=== PATIENT | male | born 1960 | race Hispanic/Latino ===

== ENCOUNTER → 2018-07-13 | Outpatient (CLI) | payer OTHER | END | disposition home or self-care (01) | LOC: RAH 09:48 | PROVIDERS: ATTEND Internal Medicine | DX: N20.0 Calculus of kidney (principal); N28.1 Cyst of kidney, acquired; I10 Essential (primary) hypertension | CPT/HCPCS: 76770; 93975 ==

== ENCOUNTER → 2018-09-28 | Outpatient (CLI) | payer OTHER ==
[2018-09-28 14:19] LABS: EOSINOPHILS % (AUTO) 1.9 % (0.0-8.0); LYMPHOCYTES % (AUTO) 20.2 % (21.0-51.0); MEAN CORPUSCULAR HEMOGLOBIN 29.3 pg (27.0-33.0); MEAN CORPUSCULAR VOLUME 86.3 fL (79-99); MONOCYTES % (AUTO) 7.4 % (3.0-13.0); NEUTROPHILS % (AUTO) 69.5 % (40.0-77.0); PLATELET COUNT (AUTO) 245 K/uL (130-400); RED BLOOD CELL COUNT(AUTO) 3.71 MIL/uL (4.50-6.20); RED CELL DISTRIBUTION WIDTH 14.2 % (11.0-15.5); WHITE BLOOD COUNT (AUTO) 11.1 K/uL (4.8-10.8)
[2018-09-28 14:27] LABS: CREATININE 2.2 mg/dL (0.5-1.5); POTASSIUM 5.2 mmol/L (3.5-5.1)
== END | disposition home or self-care (01) ==
LOC: RAH 13:37
PROVIDERS: ATTEND Urology
DX: R31.29 Other microscopic hematuria (principal)
CPT/HCPCS: 36415; 80048; 85025

== ENCOUNTER → 2018-10-02 | Outpatient (CLI) | payer OTHER | END | disposition home or self-care (01) | LOC: RAH 10:32 | PROVIDERS: ATTEND Urology | DX: N28.1 Cyst of kidney, acquired (principal) | CPT/HCPCS: 76770 ==

== ENCOUNTER → 2018-10-09 | Outpatient (CLI) | payer OTHER | END | disposition home or self-care (01) | LOC: RAH 12:51 | PROVIDERS: ATTEND Urology | DX: N20.0 Calculus of kidney (principal); N28.1 Cyst of kidney, acquired; R91.8 Other nonspecific abnormal finding of lung field; J84.10 Pulmonary fibrosis, unspecified; I70.0 Atherosclerosis of aorta | CPT/HCPCS: 74176; 76770 ==

== ENCOUNTER → 2018-12-15 | Outpatient (CLI) | payer OTHER | END | disposition home or self-care (01) | LOC: RAH 12:51 | PROVIDERS: ATTEND Urology | DX: N20.0 Calculus of kidney (principal); M47.815 Spondylosis without myelopathy or radiculopathy, thoracolumbar region | CPT/HCPCS: 74018; 76100 ==

== ENCOUNTER → 2019-01-12 | Outpatient (CLI) | payer OTHER | END | disposition home or self-care (01) | LOC: RAH 13:27 | PROVIDERS: ATTEND Internal Medicine | DX: N20.0 Calculus of kidney (principal); K63.89 Other specified diseases of intestine; I70.0 Atherosclerosis of aorta; K82.8 Other specified diseases of gallbladder; J90 Pleural effusion, not elsewhere classified; R91.8 Other nonspecific abnormal finding of lung field; J98.11 Atelectasis; M47.815 Spondylosis without myelopathy or radiculopathy, thoracolumbar region | CPT/HCPCS: 74176 ==

== ENCOUNTER 2019-02-23 17:23 | Inpatient (IN) | payer OTHER ==
[~2019-02-23] VITALS: Ht 170.2 cm; Wt 95.5 kg
[2019-02-23 18:43] LABS: APPEARANCE,URINE Clear (CLEAR); BILIRUBIN,URINE Negative (NEGATIVE); COLOR,URINE Yellow (YELLOW); GLUCOSE, URINE (UA) Negative (NEGATIVE); KETONES,URINE Negative (NEGATIVE); LEUKOCYTE ESTERASE ,URINE Negative (NEGATIVE); NITRATE,URINE Negative (NEGATIVE); OCCULT BLOOD,URINE Small (NEGATIVE); PH,URINE 5.5 (5.0-8.0); PROTEIN,URINE >=1000 mg/dL (NEGATIVE)
[2019-02-23 19:31] LABS: BACTERIA,URINE Few /HPF (None Seen); MUCUS,URINE Few LPF (None Seen); SQUAMOUS EPITHELIAL CELL,UR 0-2 /HPF (0-2)
[2019-02-23] MEDS ORDERED: ZOSYN 3.375GM+NS 50ML 50 ML IV SCH (20:15)
[2019-02-23 20:50] VITALS: BP 168/75
[2019-02-23] MEDS: ZOSYN 3.375GM+NS 50ML 50 ML IV SCH (21:30)
--- NOTE | 2019-02-23 21:36 | NUR ---
ADMIT PT ADMITTED TO ROOM 416, AAOX3. DENIES ANY PAINS NOR DISCOMFORT AT THIS TIME. NO DISTRESS NOTED. ADMISSION CARE DONE. ADMISSION DATA BASE COMPLETED. STARTED ON IV ZOSYN MD ORDERED. ORIENTED TO ROOM AND UNIT. PT TOOK OWN HOME MEDS FOR THE NIGHT. IN FOR MORE CARE AND MANAGEMENT. Addendum: 02/23/19 at 2155 by RAMIRO PETERSON RN RN Amended: Links added.
[2019-02-23] MEDS ORDERED: NEBI10TA PO (22:26)
[2019-02-23] MEDS ORDERED: [UNRECOGNIZED DRUG - OTHER] PO ×2 (22:26)
[2019-02-23] MEDS ORDERED: TORS20TA4 PO (22:26)
[2019-02-23] MEDS ORDERED: AMLO10TA7 PO (22:26)
[2019-02-23] MEDS ORDERED: FERS325 PO (22:26)
[2019-02-23] MEDS ORDERED: TAMS-1 PO (22:26)
[2019-02-23] MEDS ORDERED: INSU300I SQ (22:26)
[2019-02-23] MEDS ORDERED: ATOR40TA71 PO (22:26)
[2019-02-23] MEDS ORDERED: SODI650T PO (22:26)
[2019-02-23] MEDS ORDERED: ASCO1TAB40 PO (22:26)
[2019-02-23] MEDS ORDERED: CINN500C PO (22:26)
[2019-02-23] MEDS ORDERED: FOLI1TAB85 PO (22:26)
[2019-02-23] MEDS ORDERED: MAGNESIUM 2GM PREMIX 50ML 50 ML IV PRN (23:00)
[2019-02-23] MEDS ORDERED: HYDRALAZINE HCL 20 MG/ML VIAL IV PRN (23:00)
[2019-02-23] MEDS ORDERED: POTASSIUM CHLORIDE 20MEQ/100ML 100 ML IV PRN (23:00)
[2019-02-23 23:20] VITALS: BP 163/75
[2019-02-23 23:24] LABS: BASOPHILS % (AUTO) 1.2 % (0.0-5.0); EOSINOPHILS % (AUTO) 6.5 % (0.0-8.0); HEMATOCRIT 22.3 % (42-54); LYMPHOCYTES % (AUTO) 26.3 % (21.0-51.0); MEAN CORPUSCULAR HEMOGLOBIN 27.4 pg (27.0-33.0); MEAN CORPUSCULAR HGB CONC 33.3 g/dL (32.0-36.0); MEAN CORPUSCULAR VOLUME 82.4 fL (79-99); PLATELET COUNT (AUTO) 148 K/uL (130-400); RED BLOOD CELL COUNT(AUTO) 2.71 MIL/uL (4.50-6.20); WHITE BLOOD COUNT (AUTO) 7.3 K/uL (4.8-10.8)
--- NOTE | 2019-02-23 23:31 | NUR ---
ORDERS NEW ORDERS FROM [facility] RECEIVED, ORDERED BY REMOTE ACCESS. PHYSICAL GEOGRAPHER IN TO DRAW BLOOD. BLADDER SCAN DONE POST VOIDING NAD NO RESIDUAL URINE NOTED. RESULTS PLACED IN CHART. KEPT COMFORTABLE IN BED. WILL MONITOR PT.
[2019-02-23 23:43] LABS: ALBUMIN 2.4 g/dL (3.5-5.0); BILIRUBIN,TOTAL 0.4 mg/dL (0.2-1.0); CREATININE 5.2 mg/dL (0.5-1.5); POTASSIUM 5.8 mmol/L (3.5-5.1); TOTAL PROTEIN, SERUM 6.6 g/dL (6.0-8.3)
[2019-02-23] MEDS ORDERED: HYDRALAZINE HCL 20 MG/ML VIAL ONE (23:52)
[2019-02-23 23:56] LABS: B-TYPE NATRIURETIC PEPTIDE 628 pg/mL (0-100)
[2019-02-23] MEDS ORDERED: 0.9126SP NS (23:59)
[2019-02-24 00:39] VITALS: BP 156/71
--- NOTE | 2019-02-24 02:00 | NUR ---
ROUNDS PT RESTING WELL, NO DISTRESS NOTED. KEPT RESTED AND COMFORTABLE. CALL LIGHT WITHIN REACH. WILL MONITOR PT. FAMILY ASLEEP AT BEDSIDE.
[2019-02-24] MEDS ORDERED: SODIUM CHLORIDE 45 ML SPRY NS PRN (03:15)
[2019-02-24 03:20] VITALS: BP 161/74
--- NOTE | 2019-02-24 05:34 | NUR ---
ROUNDS PT RESTING WELL, ALREADY AWAKE. NO CONCERNS VERBALIZED AT THIS TIME. NO DISTRESS NOTED. KEPT COMFORTABLE IN BED. FOR MORE CARE.
[2019-02-24 05:35] LABS: HEMATOCRIT 22.9 % (42-54); MEAN CORPUSCULAR HEMOGLOBIN 27.1 pg (27.0-33.0); MEAN CORPUSCULAR HGB CONC 32.8 g/dL (32.0-36.0); MEAN CORPUSCULAR VOLUME 82.7 fL (79-99); PLATELET COUNT (AUTO) 154 K/uL (130-400); RED BLOOD CELL COUNT(AUTO) 2.77 MIL/uL (4.50-6.20); RED CELL DISTRIBUTION WIDTH 15.3 % (11.0-15.5); WHITE BLOOD COUNT (AUTO) 7.8 K/uL (4.8-10.8)
[2019-02-24 05:58] LABS: ALBUMIN 2.4 g/dL (3.5-5.0); BILIRUBIN,TOTAL 0.4 mg/dL (0.2-1.0); CREATININE 5.2 mg/dL (0.5-1.5); MAGNESIUM 1.9 mg/dL (1.80-2.40); PHOSPHORUS 4.7 mg/dL (2.5-4.9); POTASSIUM 5.5 mmol/L (3.5-5.1); TOTAL PROTEIN, SERUM 6.7 g/dL (6.0-8.3); URIC ACID 6.7 mg/dL (2.6-7.2)
[2019-02-24 06:29] LABS: INR 1.05 (0.85-1.15); PARTIAL THROMBOPLASTIN TIME 27.8 SEC (26.3-35.5)
[2019-02-24] MEDS: INSULIN HUMULIN R 100 UNIT/ML 3ML SQ SCH ×4 (06:34→21:00)
[2019-02-24 08:00] VITALS: BP 177/80
[2019-02-24] MEDS ORDERED: [UNRECOGNIZED DRUG - OTHER] SQ SCH (08:00)
[2019-02-24] MEDS ORDERED: INSULIN GLARGINE HUM REC ANLOG 45 UNIT SQ SCH (08:00)
[2019-02-24] MEDS: TAMSULOSIN HCL 0.4 MG CAP.ER.24H PO SCH (08:34)
[2019-02-24] MEDS: FERROUS SULFATE 325 MG TABLET.DR PO SCH (08:35)
[2019-02-24] MEDS: SODIUM BICARBONATE 650 MG TAB PO SCH ×2 (08:35→21:05)
[2019-02-24] MEDS: AMLODIPINE BESYLATE 5 MG TAB PO SCH (08:35)
[2019-02-24] MEDS: FOLIC ACID/VITAMIN B COMP W-C 1 MG CAP/TAB PO SCH (08:35)
[2019-02-24] MEDS: ESTER C 1000 MG PO SCH (08:36)
[2019-02-24] MEDS: CINNAMON BARK 500 MG PO SCH (08:36)
[2019-02-24] MEDS: NEBIVOLOL HCL 10 MG PO SCH (08:36)
[2019-02-24] MEDS: [UNRECOGNIZED DRUG - OTHER] PO SCH ×2 (08:36→21:00)
[2019-02-24] MEDS: ZOSYN 3.375GM+NS 50ML 50 ML IV SCH ×2 (08:36→21:05)
[2019-02-24] MEDS ORDERED: TORSEMIDE 20 MG TAB PO SCH (09:00)
--- NOTE | 2019-02-24 10:29 | NUR ---
DR SHAGGY ANGEL REGARDING CONSULT Addendum: 02/24/19 at 1126 by MELCHOR PINEDA RN RN SPOKE TO [facility]
[2019-02-24 11:23] VITALS: BP 128/61
--- NOTE | 2019-02-24 13:54 | NUR ---
DCP CM met with pt discussed dc plans. Pt is independent prior to admission, lives at home alone. Pt has a shower chair and cane. Denies any equipments/services. Feels safe to go back home, still drives, arranges own needs, cousing able to assist as necessary. DC plan to home once stable. CM to cont to follow up. Addendum: 02/24/19 at 1356 by CATHERINE BALDWIN LVN CM Amended: Links added.
[2019-02-24 16:00] VITALS: BP 154/75
[2019-02-24 19:00] VITALS: BP 142/66
--- NOTE | 2019-02-24 20:21 | NUR ---
CONSULT DR COON IN TO SEE PT. NEW ORDERS RECEIVED, PLEASE REFER TO CPOE.
[2019-02-24] MEDS: ATORVASTATIN CALCIUM 40 MG TABLET PO SCH (21:05)
[2019-02-24] MEDS: FLUTICASONE PROPIONATE 50MCG/SPRAY 16 GM BOTTLE EN SCH (21:05)
--- NOTE | 2019-02-24 21:05 | NUR ---
MEDS SHIFT ASSESSMENT DONE, PLEASE REFER TO CHART. DUE MEDS ADMINISTERED, TOLERATED WELL. KEPT RESTED AND COMFORTABLE. CALL LIGHT WITHIN REACH. WILL MONITOR PT. Addendum: 02/24/19 at 2311 by RAMIRO PETERSON RN RN Amended: Links added.
[2019-02-25] VITALS: BP 144/79
--- NOTE | 2019-02-25 01:20 | NUR ---
SL PT AWAKENS WHEN COMMISSIONER OF OFFICIALS ENTERS ROOM. DENIES ANY NEEDS AT THIS TIME IV ABX FINISHED, SL PIV. ENCOURAGED PT TO GO BACK TO SLEEP. CALL LIGHT WITHIN REACH. FAMILY ASLEEP AT BEDSIDE. WILL MONITOR PT.
[2019-02-25 04:00] VITALS: BP 152/72
[2019-02-25 05:00] LABS: HEMOGLOBIN A1C 6.6 % (4.0-6.0)
[2019-02-25 05:01] LABS: BASOPHILS % (AUTO) 0.9 % (0.0-5.0); EOSINOPHILS % (AUTO) 6.1 % (0.0-8.0); HEMATOCRIT 22.1 % (42-54); LYMPHOCYTES % (AUTO) 22.4 % (21.0-51.0); MEAN CORPUSCULAR HEMOGLOBIN 28.1 pg (27.0-33.0); MEAN CORPUSCULAR HGB CONC 33.6 g/dL (32.0-36.0); MEAN CORPUSCULAR VOLUME 83.8 fL (79-99); MONOCYTES % (AUTO) 10.1 % (3.0-13.0); NEUTROPHILS % (AUTO) 60.5 % (40.0-77.0); NUCLEATED RED BLOOD CELLS 0.1 % (0.0-0.19); PLATELET COUNT (AUTO) 142 K/uL (130-400); RED BLOOD CELL COUNT(AUTO) 2.64 MIL/uL (4.50-6.20); RED CELL DISTRIBUTION WIDTH 15.1 % (11.0-15.5); WHITE BLOOD COUNT (AUTO) 7.9 K/uL (4.8-10.8)
[2019-02-25 05:16] LABS: CREATININE 5.3 mg/dL (0.5-1.5); MAGNESIUM 1.9 mg/dL (1.80-2.40); PHOSPHORUS 4.7 mg/dL (2.5-4.9); POTASSIUM 5.7 mmol/L (3.5-5.1); THYROID STIMULATING HORMONE 2.02 uIU/mL (0.36-3.74); URIC ACID 6.6 mg/dL (2.6-7.2)
--- NOTE | 2019-02-25 05:36 | NUR ---
ROUNDS PT RESTING WELL, NO CONCERNS VERBALIZED. NO DISTRESS NOTED. KEPT COMFORTABLE. FOR MORE CARE.
[2019-02-25] MEDS: INSULIN HUMULIN R 100 UNIT/ML 3ML SQ SCH ×4 (06:19→20:43)
[2019-02-25 07:30] VITALS: BP 139/72
[2019-02-25] MEDS: FOLIC ACID/VITAMIN B COMP W-C 1 MG CAP/TAB PO SCH (09:21)
[2019-02-25] MEDS: FERROUS SULFATE 325 MG TABLET.DR PO SCH (09:21)
[2019-02-25] MEDS: SODIUM BICARBONATE 650 MG TAB PO SCH ×2 (09:21→20:35)
[2019-02-25] MEDS: TAMSULOSIN HCL 0.4 MG CAP.ER.24H PO SCH (09:21)
[2019-02-25] MEDS: TORSEMIDE 20 MG TAB PO SCH (09:22)
[2019-02-25] MEDS: ZOSYN 3.375GM+NS 50ML 50 ML IV SCH ×2 (09:22→20:45)
[2019-02-25] MEDS: AMLODIPINE BESYLATE 5 MG TAB PO SCH (09:22)
[2019-02-25] MEDS: FLUTICASONE PROPIONATE 50MCG/SPRAY 16 GM BOTTLE EN SCH ×2 (09:26→20:35)
[2019-02-25] MEDS: [UNRECOGNIZED DRUG - OTHER] PO SCH ×2 (09:26→20:44)
[2019-02-25] MEDS: CINNAMON BARK 500 MG PO SCH (09:26)
[2019-02-25] MEDS: NEBIVOLOL HCL 10 MG PO SCH (09:26)
[2019-02-25] MEDS: ESTER C 1000 MG PO SCH (09:26)
[2019-02-25 12:00] VITALS: BP 160/79
[2019-02-25] MEDS: LACTULOSE 20 GM/30 ML UDCUP PO SCH ×2 (15:29→18:00)
[2019-02-25 16:00] VITALS: BP 138/72
[2019-02-25] MEDS ORDERED: LACTULOSE 20 GM/30 ML UDCUP PO PRN (18:15)
[2019-02-25 19:00] VITALS: BP 152/71
[2019-02-25] MEDS: ATORVASTATIN CALCIUM 40 MG TABLET PO SCH (20:35)
[2019-02-26] VITALS (15 sets, daily range): BP systolic 144–178; BP diastolic 61–99
[2019-02-26 05:19] LABS: BASOPHILS % (AUTO) 0.9 % (0.0-5.0); EOSINOPHILS % (AUTO) 5.7 % (0.0-8.0); HEMATOCRIT 22.4 % (42-54); LYMPHOCYTES % (AUTO) 24.7 % (21.0-51.0); MEAN CORPUSCULAR HEMOGLOBIN 27.3 pg (27.0-33.0); MEAN CORPUSCULAR HGB CONC 33.3 g/dL (32.0-36.0); MONOCYTES % (AUTO) 9.2 % (3.0-13.0); NEUTROPHILS % (AUTO) 59.5 % (40.0-77.0); PLATELET COUNT (AUTO) 149 K/uL (130-400); RED BLOOD CELL COUNT(AUTO) 2.73 MIL/uL (4.50-6.20); WHITE BLOOD COUNT (AUTO) 8.6 K/uL (4.8-10.8)
[2019-02-26 05:22] LABS: CREATININE 5.6 mg/dL (0.5-1.5); POTASSIUM 5.6 mmol/L (3.5-5.1)
[2019-02-26] MEDS: INSULIN HUMULIN R 100 UNIT/ML 3ML SQ SCH ×4 (06:36→21:38)
[2019-02-26] MEDS ORDERED: LIDOCAINE HCL 1% MDV 50ML VIAL ONE (09:49)
[2019-02-26] MEDS: FLUTICASONE PROPIONATE 50MCG/SPRAY 16 GM BOTTLE EN SCH ×2 (10:07→21:38)
--- NOTE | 2019-02-26 10:35 | NUR ---
PT RETURNED FROM PERMACATH PLACEMENT PT STABLE AND IN PLEASANT MOOD. SITE INTRACT AND NO BLEEDING NOTED. DOUBEL LUMEN PERMACATH NOTED TO R SIDE OF CHEST. POST OP VS INITIATED
[2019-02-26] MEDS: [UNRECOGNIZED DRUG - OTHER] PO SCH ×2 (10:40→21:00)
[2019-02-26] MEDS: FERROUS SULFATE 325 MG TABLET.DR PO SCH (10:40)
[2019-02-26] MEDS: NEBIVOLOL HCL 10 MG PO SCH (10:40)
[2019-02-26] MEDS: FOLIC ACID/VITAMIN B COMP W-C 1 MG CAP/TAB PO SCH (10:40)
[2019-02-26] MEDS: TAMSULOSIN HCL 0.4 MG CAP.ER.24H PO SCH (10:40)
[2019-02-26] MEDS: TORSEMIDE 20 MG TAB PO SCH (10:40)
[2019-02-26] MEDS: SODIUM BICARBONATE 650 MG TAB PO SCH ×2 (10:40→21:37)
[2019-02-26] MEDS: AMLODIPINE BESYLATE 5 MG TAB PO SCH (10:40)
[2019-02-26] MEDS: ZOSYN 3.375GM+NS 50ML 50 ML IV SCH ×2 (10:40→21:38)
[2019-02-26] MEDS: ESTER C 1000 MG PO SCH (10:41)
[2019-02-26] MEDS: CINNAMON BARK 500 MG PO SCH (10:41)
--- NOTE | 2019-02-26 11:54 | NUR ---
DR DEL CID PAGED DR DEL CID PAGED REQUESTED BY HIM AFTER PERMACATH PLACEMENT. PENDING CB
[2019-02-26] MEDS ORDERED: IRON SUCROSE COMPLEX 100 MG in SODIUM CHLORIDE 0.9% 50 ML IV SCH (15:00)
[2019-02-26] MEDS ORDERED: COMPOUND IV MISC 1 EACH IVSOLN MISC PRN (15:30)
[2019-02-26] MEDS ORDERED: SODIUM CHLORIDE 0.9% 1000ML 1,000 ML IV PRN (16:15)
[2019-02-26] MEDS ORDERED: HEPARIN SODIUM 5000UNIT/ML 1ML VIAL IJ PRN (16:15)
[2019-02-26] MEDS ORDERED: 0.9% SODIUM CHLORIDE 1000 ML IV BAG IV PRN (16:15)
[2019-02-26] MEDS ORDERED: ACETAMINOPHEN 325 MG TAB PO PRN (16:15)
[2019-02-26 16:31] LABS: HEMATOCRIT 22.6 % (42-54)
[2019-02-26 16:50] LABS: ALBUMIN 2.5 g/dL (3.5-5.0); CREATININE 4.5 mg/dL (0.5-1.5)
--- NOTE | 2019-02-26 16:59 | NUR ---
DR ROMO PAGED DR ROMO PAGED REGARDING SX CONSULT FOR GRAFT PLACEMENT. STATED HE WILL SEE PT TOMORROW 02/27
[2019-02-26 17:08] LABS: % IRON SATURATION 11.5 % (30-44)
[2019-02-26 17:14] LABS: HEMOGLOBIN A1C 6.6 % (4.0-6.0)
[2019-02-26] MEDS ORDERED: EPOETIN ALFA 10,000 UNIT/ML VIAL SQ SCH (17:42)
[2019-02-26] MEDS ORDERED: CEFAZOLIN SODIUM 1 GM VIAL IVP PRN (19:15)
--- NOTE | 2019-02-26 19:31 | NUR ---
cm note met with patient and states agreeable to HD setup at [facility] in [place], pt resides in [place], and does have family that can transport him to and from. choice letter and THERESA obtained. 1st HD treatment started today.
[2019-02-26] MEDS: ATORVASTATIN CALCIUM 40 MG TABLET PO SCH (21:37)
[2019-02-27] VITALS (25 sets, daily range): BP systolic 146–171; BP diastolic 62–79
[2019-02-27 06:01] LABS: BASOPHILS % (AUTO) 1.1 % (0.0-5.0); EOSINOPHILS % (AUTO) 5.9 % (0.0-8.0); HEMATOCRIT 22.4 % (42-54); LYMPHOCYTES % (AUTO) 23.1 % (21.0-51.0); MEAN CORPUSCULAR HEMOGLOBIN 27.3 pg (27.0-33.0); MEAN CORPUSCULAR HGB CONC 33.2 g/dL (32.0-36.0); MONOCYTES % (AUTO) 9.8 % (3.0-13.0); NEUTROPHILS % (AUTO) 60.1 % (40.0-77.0); PLATELET COUNT (AUTO) 152 K/uL (130-400); RED BLOOD CELL COUNT(AUTO) 2.73 MIL/uL (4.50-6.20); RED CELL DISTRIBUTION WIDTH 15.1 % (11.0-15.5); WHITE BLOOD COUNT (AUTO) 7.2 K/uL (4.8-10.8)
[2019-02-27 06:09] LABS: INR 1.09 (0.85-1.15); PARTIAL THROMBOPLASTIN TIME 27.9 SEC (26.3-35.5); PROTHROMBIN TIME 11.4 SEC (9.6-11.6)
[2019-02-27 06:12] LABS: CREATININE 4.6 mg/dL (0.5-1.5); PHOSPHORUS 4.1 mg/dL (2.5-4.9)
[2019-02-27] MEDS: INSULIN HUMULIN R 100 UNIT/ML 3ML SQ SCH ×4 (06:40→20:39)
[2019-02-27] MEDS: NEBIVOLOL HCL 10 MG PO SCH (06:45)
[2019-02-27] MEDS ORDERED: ROPIVACAINE 0.5% 5MG/ML 30ML IJ ONE (07:05)
[2019-02-27] MEDS ORDERED: MIDAZOLAM HCL 1 MG/ML 2ML VIAL ONE ×2 (07:09→08:06)
[2019-02-27] MEDS ORDERED: PAPAVERINE HCL 30 MG/ML 2ML VIAL ONE (07:28)
[2019-02-27] MEDS ORDERED: BACITRACIN 50,000 UNIT VIAL ONE (07:28)
[2019-02-27] MEDS ORDERED: KETAMINE 50MG/ML SYRINGE 50 MG/ML DISP.SYRIN IV ONE (07:42)
[2019-02-27] MEDS ORDERED: FENTANYL CITRATE PF 50 MCG/1 ML 2ML VIAL ONE (07:55)
[2019-02-27] MEDS ORDERED: PROPOFOL 10 MG/ML 20ML VIAL IV ONE (07:55)
[2019-02-27] MEDS: ESTER C 1000 MG PO SCH (09:00)
[2019-02-27] MEDS: ZOSYN 3.375GM+NS 50ML 50 ML IV SCH ×2 (09:30→20:36)
--- NOTE | 2019-02-27 09:56 | NUR ---
Patient arrived from PACU after receiving local Mac with a block for Lt AV Fistula placement to lt lower arm. No ecchymosis noted, dressed with gauze and transparent tape, clean, dry and intact. Per written orders by Dr. Rinaldi, Aspirin 81 mg PO Daily and Tramadol 50 mg PO Q6h PRN for moderate pain ordered. Bed low, locked, call mac within reach. Spouse at bedside.
[2019-02-27] MEDS: SODIUM BICARBONATE 650 MG TAB PO SCH ×2 (14:09→20:36)
[2019-02-27] MEDS: TORSEMIDE 20 MG TAB PO SCH (14:09)
[2019-02-27] MEDS: FOLIC ACID/VITAMIN B COMP W-C 1 MG CAP/TAB PO SCH (14:09)
[2019-02-27] MEDS: AMLODIPINE BESYLATE 5 MG TAB PO SCH (14:10)
[2019-02-27] MEDS: TAMSULOSIN HCL 0.4 MG CAP.ER.24H PO SCH (14:10)
[2019-02-27] MEDS: FERROUS SULFATE 325 MG TABLET.DR PO SCH (14:10)
[2019-02-27] MEDS: FLUTICASONE PROPIONATE 50MCG/SPRAY 16 GM BOTTLE EN SCH ×2 (14:11→20:36)
[2019-02-27] MEDS: CINNAMON BARK 500 MG PO SCH (14:11)
[2019-02-27] MEDS: [UNRECOGNIZED DRUG - OTHER] PO SCH ×2 (14:19→20:36)
[2019-02-27] MEDS ORDERED: TRAMADOL HCL 50 MG TABLET PO PRN (15:15)
[2019-02-27] MEDS: ASPIRIN 81MG TAB.CHEW PO SCH (17:00)
[2019-02-27] MEDS: ATORVASTATIN CALCIUM 40 MG TABLET PO SCH (20:36)
--- NOTE | 2019-02-27 23:40 | NUR ---
elevated bp pt just came back from restroom , with urge to do bm ,unable , states ok ,will recheck once relaxed,no acute distress Addendum: 02/28/19 at 0331 by DRE BIRMINGHAM RN RN Amended: Links added.
[2019-02-28 04:32] VITALS: BP 154/73
[2019-02-28 05:20] LABS: BASOPHILS % (AUTO) 1.1 % (0.0-5.0); EOSINOPHILS % (AUTO) 5.4 % (0.0-8.0); HEMATOCRIT 22.3 % (42-54); LYMPHOCYTES % (AUTO) 20.5 % (21.0-51.0); MEAN CORPUSCULAR HEMOGLOBIN 27.5 pg (27.0-33.0); MEAN CORPUSCULAR HGB CONC 33.8 g/dL (32.0-36.0); MEAN CORPUSCULAR VOLUME 81.2 fL (79-99); MONOCYTES % (AUTO) 9.9 % (3.0-13.0); NEUTROPHILS % (AUTO) 63.1 % (40.0-77.0); PLATELET COUNT (AUTO) 147 K/uL (130-400); RED BLOOD CELL COUNT(AUTO) 2.75 MIL/uL (4.50-6.20); RED CELL DISTRIBUTION WIDTH 14.8 % (11.0-15.5)
[2019-02-28 05:30] LABS: CREATININE 3.5 mg/dL (0.5-1.5); POTASSIUM 4.5 mmol/L (3.5-5.1)
[2019-02-28] MEDS: INSULIN HUMULIN R 100 UNIT/ML 3ML SQ SCH ×4 (06:26→20:54)
[2019-02-28 07:49] VITALS: BP 160/74
[2019-02-28] MEDS: FLUTICASONE PROPIONATE 50MCG/SPRAY 16 GM BOTTLE EN SCH ×2 (08:58→20:54)
[2019-02-28] MEDS: ASPIRIN 81MG TAB.CHEW PO SCH (08:59)
[2019-02-28] MEDS: TORSEMIDE 20 MG TAB PO SCH (08:59)
[2019-02-28] MEDS: FERROUS SULFATE 325 MG TABLET.DR PO SCH (08:59)
[2019-02-28] MEDS: TAMSULOSIN HCL 0.4 MG CAP.ER.24H PO SCH (08:59)
[2019-02-28] MEDS: NEBIVOLOL HCL 10 MG PO SCH (09:00)
[2019-02-28] MEDS: ESTER C 1000 MG PO SCH (09:00)
[2019-02-28] MEDS: CINNAMON BARK 500 MG PO SCH (09:00)
[2019-02-28] MEDS: [UNRECOGNIZED DRUG - OTHER] PO SCH ×2 (09:00→20:54)
[2019-02-28] MEDS: FOLIC ACID/VITAMIN B COMP W-C 1 MG CAP/TAB PO SCH (09:01)
[2019-02-28] MEDS: ZOSYN 3.375GM+NS 50ML 50 ML IV SCH ×2 (09:01→20:53)
[2019-02-28] MEDS: AMLODIPINE BESYLATE 5 MG TAB PO SCH (09:01)
[2019-02-28] MEDS: SODIUM BICARBONATE 650 MG TAB PO SCH ×2 (09:01→20:53)
[2019-02-28 11:12] VITALS: BP 168/80
[2019-02-28 16:05] VITALS: BP 148/74
--- NOTE | 2019-02-28 18:20 | NUR ---
cm note referral faxed to [facility] in [place], pending approval.
[2019-02-28 20:00] VITALS: BP 148/67
[2019-02-28] MEDS: ATORVASTATIN CALCIUM 40 MG TABLET PO SCH (20:53)
[2019-02-28 23:51] VITALS: BP 148/70
[2019-03-01 03:53] VITALS: BP 162/69
[2019-03-01 04:02] LABS: BASOPHILS % (AUTO) 0.9 % (0.0-5.0); EOSINOPHILS % (AUTO) 5.4 % (0.0-8.0); HEMATOCRIT 22.1 % (42-54); LYMPHOCYTES % (AUTO) 25.5 % (21.0-51.0); MEAN CORPUSCULAR HEMOGLOBIN 28.1 pg (27.0-33.0); MEAN CORPUSCULAR HGB CONC 34.2 g/dL (32.0-36.0); MEAN CORPUSCULAR VOLUME 82.3 fL (79-99); MONOCYTES % (AUTO) 10.6 % (3.0-13.0); NEUTROPHILS % (AUTO) 57.6 % (40.0-77.0); PLATELET COUNT (AUTO) 130 K/uL (130-400); RED BLOOD CELL COUNT(AUTO) 2.68 MIL/uL (4.50-6.20); RED CELL DISTRIBUTION WIDTH 14.9 % (11.0-15.5); WHITE BLOOD COUNT (AUTO) 8.2 K/uL (4.8-10.8)
[2019-03-01 04:07] LABS: CREATININE 4.2 mg/dL (0.5-1.5); POTASSIUM 4.6 mmol/L (3.5-5.1)
[2019-03-01] MEDS: INSULIN HUMULIN R 100 UNIT/ML 3ML SQ SCH ×3 (07:30→20:32)
[2019-03-01 08:03] VITALS: BP 154/72
[2019-03-01] MEDS: ESTER C 1000 MG PO SCH (09:00)
[2019-03-01] MEDS: FLUTICASONE PROPIONATE 50MCG/SPRAY 16 GM BOTTLE EN SCH ×2 (09:00→20:50)
[2019-03-01] MEDS: NEBIVOLOL HCL 10 MG PO SCH (09:00)
[2019-03-01] MEDS: [UNRECOGNIZED DRUG - OTHER] PO SCH ×2 (09:00→20:50)
[2019-03-01] MEDS: CINNAMON BARK 500 MG PO SCH (09:00)
[2019-03-01] MEDS: FOLIC ACID/VITAMIN B COMP W-C 1 MG CAP/TAB PO SCH (09:25)
[2019-03-01] MEDS: ASPIRIN 81MG TAB.CHEW PO SCH (09:26)
[2019-03-01] MEDS: AMLODIPINE BESYLATE 5 MG TAB PO SCH (09:26)
[2019-03-01] MEDS: TAMSULOSIN HCL 0.4 MG CAP.ER.24H PO SCH (09:27)
[2019-03-01] MEDS: TORSEMIDE 20 MG TAB PO SCH (09:27)
[2019-03-01] MEDS: SODIUM BICARBONATE 650 MG TAB PO SCH ×2 (09:27→20:48)
[2019-03-01] MEDS: FERROUS SULFATE 325 MG TABLET.DR PO SCH (09:27)
[2019-03-01] MEDS: ZOSYN 3.375GM+NS 50ML 50 ML IV SCH ×2 (09:31→20:49)
[2019-03-01 11:49] VITALS: BP 149/72
--- NOTE | 2019-03-01 12:53 | NUR ---
cm note call made to [facility]oor in lab, and states Hep panel, and labs was sent out and pending results still.
--- NOTE | 2019-03-01 12:54 | NUR ---
cm note call made to [facility] and spoke to [place], and states that they received clinical for setup, and has a tentative chair of MWF at 215pm. but they are still pending for insurance to approve, states will also need rest of labs and HD tx note.
[2019-03-01 16:00] VITALS: BP 151/70
--- NOTE | 2019-03-01 18:13 | NUR ---
Nutrition Intervention: Nutrition screen based on LOS x 6 days. Pt. S/P Permacath placement on 02/26/19 and Left arm AV fistula on 02/27/19. Pt. on 75gm CCD renal Dialysis diet with good p.o. intake, as per pt. Labs reviewed(Alb 2.5, BUN 24, Creat 4.2, GFR 16). LBM: 02/28/19. SR-22, elastic. Pt. and spouse educated on Renal Dialysis diet and provided with education material. Pt. and spouse verbalized understanding. Recommendations: 1) Continue current diet. 2) Renal Dialysis diet education given to patient and spouse 3) Rec. 30ml ProMod BID with B'fast and dinner meals. 4) Continue to monitor pt's nutritional status. 5) Consult RD as nutrition concerns arise. Addendum: 03/01/19 at [address] Amended: Links added.
[2019-03-01 20:16] VITALS: BP 156/70
[2019-03-01] MEDS: ATORVASTATIN CALCIUM 40 MG TABLET PO SCH (20:48)
[2019-03-01 23:40] VITALS: BP 153/68
[2019-03-02 04:00] VITALS: BP 153/71
[2019-03-02] MEDS: INSULIN HUMULIN R 100 UNIT/ML 3ML SQ SCH ×3 (05:22→17:06)
[2019-03-02 05:34] LABS: BASOPHILS % (AUTO) 1.1 % (0.0-5.0); EOSINOPHILS % (AUTO) 6.3 % (0.0-8.0); HEMATOCRIT 23.6 % (42-54); LYMPHOCYTES % (AUTO) 24.9 % (21.0-51.0); MEAN CORPUSCULAR HEMOGLOBIN 27.3 pg (27.0-33.0); MEAN CORPUSCULAR HGB CONC 33.8 g/dL (32.0-36.0); MEAN CORPUSCULAR VOLUME 80.9 fL (79-99); MONOCYTES % (AUTO) 10.5 % (3.0-13.0); NEUTROPHILS % (AUTO) 57.2 % (40.0-77.0); PLATELET COUNT (AUTO) 155 K/uL (130-400); RED BLOOD CELL COUNT(AUTO) 2.92 MIL/uL (4.50-6.20); RED CELL DISTRIBUTION WIDTH 14.7 % (11.0-15.5); WHITE BLOOD COUNT (AUTO) 9.2 K/uL (4.8-10.8)
[2019-03-02 05:48] LABS: CREATININE 3.7 mg/dL (0.5-1.5); PHOSPHORUS 3.7 mg/dL (2.5-4.9); POTASSIUM 3.8 mmol/L (3.5-5.1)
[2019-03-02 06:10] LABS: HEPATITIS Bs ANTIGEN SCREEN P Negative (Negative)
[2019-03-02 06:10] LABS: HEPATITIS A ANTIBODY IGM Negative (Negative); HEPATITIS B CORE IGM Negative (Negative); HEPATITIS Bs ANTIGEN SCREEN P Negative (Negative)
[2019-03-02 08:01] VITALS: BP 165/77
[2019-03-02] MEDS: TORSEMIDE 20 MG TAB PO SCH (08:46)
[2019-03-02] MEDS: FOLIC ACID/VITAMIN B COMP W-C 1 MG CAP/TAB PO SCH (08:47)
[2019-03-02] MEDS: FERROUS SULFATE 325 MG TABLET.DR PO SCH (08:47)
[2019-03-02] MEDS: AMLODIPINE BESYLATE 5 MG TAB PO SCH (08:47)
[2019-03-02] MEDS: ASPIRIN 81MG TAB.CHEW PO SCH (08:47)
[2019-03-02] MEDS: ZOSYN 3.375GM+NS 50ML 50 ML IV SCH (08:48)
[2019-03-02] MEDS: SODIUM BICARBONATE 650 MG TAB PO SCH (08:48)
[2019-03-02] MEDS: TAMSULOSIN HCL 0.4 MG CAP.ER.24H PO SCH (08:48)
[2019-03-02] MEDS: CINNAMON BARK 500 MG PO SCH (08:49)
[2019-03-02] MEDS: NEBIVOLOL HCL 10 MG PO SCH (08:49)
[2019-03-02] MEDS: ESTER C 1000 MG PO SCH (08:49)
[2019-03-02] MEDS: [UNRECOGNIZED DRUG - OTHER] PO SCH (08:49)
[2019-03-02] MEDS: FLUTICASONE PROPIONATE 50MCG/SPRAY 16 GM BOTTLE EN SCH (08:50)
[2019-03-02 11:37] VITALS: BP 169/76
--- NOTE | 2019-03-02 15:04 | NUR ---
CM Note: [facility] [place] and chair time MWF @2:15pm CM spoke to Summer w/[facility]. Pt has ins auth, approval, and chair time MWF @ 2:15pm. Pt updated w/POC. Primary nurse aware. CM to cont to follow up.
[2019-03-02 16:06] VITALS: BP 154/70
--- NOTE | 2019-03-02 18:33 | NUR ---
pt stated understanding of all d/c instructions on after care for end stage renal disease, av fistula, and permacath care; iv access removed
== END 2019-03-02 18:40 | disposition home or self-care (01) | DRG 673 ==
LOC: EDH 17:23 → OBSVTOIN 17:54 → EDHIP 17:54 → 4CH 20:30
PROVIDERS: ADMIT Internal Medicine; ATTEND Internal Medicine
PROC: 5A09357 Assistance with Respiratory Ventilation, Less than 24 Consecutive Hours, Continuous Positive Airway Pressure (ICD-10-PCS; 2019-02-25)
PROC: 5A1D70Z Performance of Urinary Filtration, Intermittent, Less than 6 Hours Per Day (ICD-10-PCS; 2019-02-26)
PROC: 0JH63XZ Insertion of Tunneled Vascular Access Device into Chest Subcutaneous Tissue and Fascia, Percutaneous Approach (ICD-10-PCS; 2019-02-26)
PROC: 02H633Z Insertion of Infusion Device into Right Atrium, Percutaneous Approach (ICD-10-PCS; 2019-02-26)
PROC: 5A1D70Z Performance of Urinary Filtration, Intermittent, Less than 6 Hours Per Day (ICD-10-PCS; 2019-02-27)
PROC: 5A09357 Assistance with Respiratory Ventilation, Less than 24 Consecutive Hours, Continuous Positive Airway Pressure (ICD-10-PCS; 2019-02-27)
PROC: 031C0ZF Bypass Left Radial Artery to Lower Arm Vein, Open Approach (ICD-10-PCS; principal; 2019-02-27 08:30)
PROC: 5A09357 Assistance with Respiratory Ventilation, Less than 24 Consecutive Hours, Continuous Positive Airway Pressure (ICD-10-PCS; 2019-02-28)
PROC: 5A1D70Z Performance of Urinary Filtration, Intermittent, Less than 6 Hours Per Day (ICD-10-PCS; 2019-03-01)
PROC: 5A09357 Assistance with Respiratory Ventilation, Less than 24 Consecutive Hours, Continuous Positive Airway Pressure (ICD-10-PCS; 2019-03-01)
PROC: 5A09357 Assistance with Respiratory Ventilation, Less than 24 Consecutive Hours, Continuous Positive Airway Pressure (ICD-10-PCS; 2019-03-02)
DX: I12.0 Hypertensive chronic kidney disease with stage 5 chronic kidney disease or end stage renal disease (principal); N18.6 End stage renal disease; N17.9 Acute kidney failure, unspecified; J90 Pleural effusion, not elsewhere classified; E87.5 Hyperkalemia; N20.0 Calculus of kidney; E11.22 Type 2 diabetes mellitus with diabetic chronic kidney disease; K21.9 Gastro-esophageal reflux disease without esophagitis; D64.9 Anemia, unspecified; E66.01 Morbid (severe) obesity due to excess calories; E11.51 Type 2 diabetes mellitus with diabetic peripheral angiopathy without gangrene; E11.21 Type 2 diabetes mellitus with diabetic nephropathy; E78.00 Pure hypercholesterolemia, unspecified; E78.5 Hyperlipidemia, unspecified; E87.70 Fluid overload, unspecified; G47.30 Sleep apnea, unspecified; I25.10 Atherosclerotic heart disease of native coronary artery without angina pectoris; H54.61 Unqualified visual loss, right eye, normal vision left eye; Z68.33 Body mass index [BMI] 33.0-33.9, adult; Z89.429 Acquired absence of other toe(s), unspecified side; Z79.4 Long term (current) use of insulin; Z87.442 Personal history of urinary calculi; Z79.899 Other long term (current) drug therapy; Z83.3 Family history of diabetes mellitus
CPT/HCPCS: 36415; 36558; 71045; 71046; 74176; 77001; 80048; 80053; 80061; 80074; 81001; 82040; 82565; 82728; 82948; 83036; 83540; 83550; 83735; 83880; 84100; 84443; 84520; 84550; 85014; 85018; 85025; 85027; 85610; 85730; 86701; 86704; 86706; 86850; 86900; 86901; 87088; 87340; 87390; 87520; 90935; 93005; 93970; C1750; G0378; J0360; J0690; J0885; J1644; J1756; J1815; J2250; J2440; J2543; J2704; J2795; J3010; J3490; J7030

== ENCOUNTER 2019-06-08 05:41 | Day surgery (SDC) | payer OTHER ==
[~2019-06-08] VITALS: Ht 167.6 cm; Wt 95.9 kg
[~2019-06-08 05:41] MED LIST: 0.9126SP NS; AMLO10TA7 PO; ASCO1TAB40 PO; ATOR40TA71 PO; CINN500C PO; FERS325 PO; FOLI1TAB85 PO; INSU300I SQ; NEBI10TA PO; SODI650T PO; TAMS-1 PO; TORS20TA4 PO; [UNRECOGNIZED DRUG - OTHER] PO
[2019-06-08] MEDS ORDERED: SODIUM CHLORIDE 0.9% 1000ML 1,000 ML IV ONE (05:56)
[2019-06-08 06:12] VITALS: BP 175/74
[2019-06-08] MEDS ORDERED: LIDOCAINE HCL 1% 20 ML VIAL ONE (06:59)
[2019-06-08] MEDS ORDERED: PROPOFOL 10 MG/ML 20ML VIAL IV ONE (06:59)
[2019-06-08] MEDS ORDERED: PHENYLEPHRINE HCL 10 MG/ML 1ML VIAL IV ONE (07:02)
[2019-06-08] MEDS ORDERED: GLYCOPYRROLATE 0.2 MG/ML 5 ML VIAL ONE (07:13)
[2019-06-08 07:37] VITALS: BP 176/80
[2019-06-08 07:42] VITALS: BP 182/85
[2019-06-08 07:47] VITALS: BP 162/88
== END 2019-06-08 08:00 | disposition home or self-care (01) ==
LOC: DAH 05:41 → ENDO 05:41
PROVIDERS: ATTEND Internal Medicine
DX: K59.00 Constipation, unspecified (principal); K63.5 Polyp of colon; I70.0 Atherosclerosis of aorta; N18.6 End stage renal disease; I12.0 Hypertensive chronic kidney disease with stage 5 chronic kidney disease or end stage renal disease; K21.9 Gastro-esophageal reflux disease without esophagitis; D63.1 Anemia in chronic kidney disease; E11.22 Type 2 diabetes mellitus with diabetic chronic kidney disease; E78.5 Hyperlipidemia, unspecified; F32.9 Major depressive disorder, single episode, unspecified; Z79.899 Other long term (current) drug therapy; Z87.891 Personal history of nicotine dependence
CPT/HCPCS: 36415; 45380; 45385; 82948 ×2; 84132; A4215; A4221; A4222; A4223; A4606; A4620; A4663; J2370; J2704; J3490; J7030

== ENCOUNTER → 2021-06-14 | Outpatient (CLI) | payer OTHER ==
[~2021-06-14] MED LIST changes: +AMLO-258 PO; -AMLO10TA7 PO
== END | disposition home or self-care (01) ==
LOC: RAH 07:31
PROVIDERS: ATTEND Internal Medicine
DX: N20.0 Calculus of kidney (principal); N28.1 Cyst of kidney, acquired; N28.89 Other specified disorders of kidney and ureter; R93.89 Abnormal findings on diagnostic imaging of other specified body structures
CPT/HCPCS: 76705

== ENCOUNTER → 2022-09-17 | Outpatient (CLI) | payer OTHER | END | disposition home or self-care (01) | LOC: SHCH 07:33 | PROVIDERS: ATTEND Student in an Organized Health Care Education/Training Program | DX: I11.9 Hypertensive heart disease without heart failure (principal); R06.00 Dyspnea, unspecified; E11.9 Type 2 diabetes mellitus without complications; E78.5 Hyperlipidemia, unspecified | CPT/HCPCS: 93306 ==

== ENCOUNTER → 2022-09-24 | Outpatient (CLI) | payer OTHER ==
[~2022-09-24] MED LIST changes: +REGADENOSON 0.4 MG/5 ML PF SYG IVP ONE
== END | disposition home or self-care (01) ==
LOC: SHCH 07:32
PROVIDERS: ATTEND Student in an Organized Health Care Education/Training Program
DX: I24.9 Acute ischemic heart disease, unspecified (principal); R06.00 Dyspnea, unspecified; I11.9 Hypertensive heart disease without heart failure; E11.9 Type 2 diabetes mellitus without complications; E78.5 Hyperlipidemia, unspecified
CPT/HCPCS: 78452; 93017; J2785; A9500 ×2; 96374

== ENCOUNTER → 2023-02-27 | Outpatient (CLI) | payer OTHER ==
[~2023-02-27] MED LIST changes: -REGADENOSON 0.4 MG/5 ML PF SYG IVP ONE
== END | disposition home or self-care (01) ==
LOC: RAH 09:43
PROVIDERS: ATTEND Internal Medicine Gastroenterology
DX: K76.0 Fatty (change of) liver, not elsewhere classified (principal); N20.0 Calculus of kidney; R14.0 Abdominal distension (gaseous)
CPT/HCPCS: 78264; 76700; A9541

== ENCOUNTER → 2023-08-05 | Outpatient (CLI) | payer OTHER | END | disposition home or self-care (01) | LOC: RAH 12:44 | PROVIDERS: ATTEND Internal Medicine | DX: M47.815 Spondylosis without myelopathy or radiculopathy, thoracolumbar region (principal); R29.898 Other symptoms and signs involving the musculoskeletal system; M25.78 Osteophyte, vertebrae; R20.2 Paresthesia of skin | CPT/HCPCS: 72052; 72070; 72100 ==

== ENCOUNTER → 2023-10-07 | Outpatient (CLI) | payer OTHER | END | disposition home or self-care (01) | LOC: RAH 13:39 | PROVIDERS: ATTEND Internal Medicine | DX: I70.203 Unspecified atherosclerosis of native arteries of extremities, bilateral legs (principal); N63.11 Unspecified lump in the right breast, upper outer quadrant; R29.898 Other symptoms and signs involving the musculoskeletal system; R20.2 Paresthesia of skin; R53.1 Weakness; Z99.2 Dependence on renal dialysis | CPT/HCPCS: 76641; 93925 ==

== ENCOUNTER → 2024-04-22 | Outpatient (CLI) | payer OTHER ==
[~2024-04-22] MED LIST changes: -NEBI10TA PO; +NEBI10TA10 PO
--- NOTE | 2024-04-26 10:06 | HMCSR ---
APPROVED REPORT Laterality: Bilateral Indications Claudication: , PAD VELOCITY AND DOPPLER WAVEFORM ANALYSIS WATER MAINTENANCE SUPERVISOR (R) 185.8cm/sec, Biphasic, WATER MAINTENANCE SUPERVISOR (L) 160.6cm/sec, Biphasic, Prof Fem Art. (R) 116.1cm/sec, Biphasic, Prof Fem Art. (L) 119.0cm/sec, Biphasic, Fem Art Prox. (R) 156.2cm/sec, Biphasic, Fem Art Prox. (L) 120.9cm/sec, Biphasic, Fem Art Mid. (R) 147.8cm/sec, Biphasic, Fem Art Mid. (L) 166.2cm/sec, Biphasic, Fem Art Dist (R) 120.1cm/sec, Biphasic, Fem Art Dist. (L) 94.9cm/sec, Biphasic, Pop Art(AK) (R) 98.4cm/sec, Biphasic, Pop Art (AK) (L) 98.4cm/sec, Biphasic, Pop Art (Fossa)(R) 139.4cm/sec, Biphasic, Pop Art (Fossa) (L) 93.8cm/sec, Biphasic, Pop Art(BK) (R) 117.3cm/sec, Biphasic, Pop Art (BK) (L) 110.0cm/sec, Biphasic, CUT OFF WORKER Prox. (R) cm/sec, Severe > 75%CUT OFF WORKER Prox. (L) 81.0cm/sec, Biphasic, CUT OFF WORKER Mid. (R) cm/sec, Occluded CUT OFF WORKER Mid. (L) 104.2cm/sec, Biphasic, CUT OFF WORKER Dist. (R) cm/sec, Retrograde flow CUT OFF WORKER Dist. (L) 122.7cm/sec, Biphasic, Per Art Prox. (R) 47.3cm/sec, Biphasic, Per Art Prox. (L) 49.8cm/sec, Biphasic, Per Art Mid. (R) 52.2cm/sec, Biphasic, Per Art Mid. (L) 57.9cm/sec, Biphasic, Per Art Dist. (R) 56.3cm/sec, Biphasic, Per Art Dist. (L) 63.6cm/sec, Biphasic, REJI Prox. (R) 175.7cm/sec, Biphasic, REJI Prox. (L) 106.3cm/sec, Biphasic, REJI Mid. (R) 79.9cm/sec, Biphasic REJI Mid. (L) 96.6cm/sec, Biphasic, REJI Dist. (R) 100.7cm/sec, Biphasic, REJI Dist. (L) 84.2cm/sec, Biphasic, Technologist Impression Right mid CUT OFF WORKER appers occluded with evidence of retrograde flow distally. Conclusion Monophasic waveforms noted over right mid CUT OFF WORKER suggestive of >70% stenosis. Conclusion Monophasic waveforms noted over right mid CUT OFF WORKER suggestive of >70% stenosis.
--- NOTE | 2024-04-26 10:09 | HMCSR ---
APPROVED REPORT Bilateral Lower Extremity Venous Study for DVT., Venous Competence. Indications i87.1, i87.2 Vein Imaging CFV (R): Normal flow, augmentation and compression. No evidence of DVT. 14.5mm 1517ms of reflux. SFJ (R): Normal flow, augmentation and compression. No evidence of DVT. FEM (R): Normal flow, augmentation and compression. No evidence of DVT. POP (R): Normal flow, augmentation and compression. No evidence of DVT. DFV (R): Normal flow, augmentation and compression. No evidence of DVT. PTV (R): Normal flow, augmentation and compression. No evidence of DVT. Peroneals (R): Normal flow, augmentation and compression. No evidence of DVT. CFV (L): Normal flow, augmentation and compression. No evidence of DVT. 12.9mm 511ms of reflux. SFJ (L): Normal flow, augmentation and compression. No evidence of DVT. FEM (L): Normal flow, augmentation and compression. No evidence of DVT. POP (L): Normal flow, augmentation and compression. No evidence of DVT. 1189ms of reflux. DFV (L): Normal flow, augmentation and compression. No evidence of DVT. PTV (L): Normal flow, augmentation and compression. No evidence of DVT. Peroneals (L): Normal flow, augmentation and compression. No evidence of DVT. Technologist Impression Deep veins of the bilateral lower extremities appear patent and comperssible without thrombus. Deep venous reflux noted in the RCFV. Superficial venous insufficiency noted in the RGSV at junction. RGSV junction 9.2mm 833ms thigh 3.7mm 0.0ms knee 4.3mm 0.0ms calf 2.9mm 0.0ms RSSV - closed LGSV junction 9.2mm 0.0ms thigh 4.5mm 0.0ms knee 3.2mm 283ms calf 2.9mm 0.0ms LSSV prox 3.2mm 0.0ms mid 2.5mm 0.0ms Conclusion No DVTs observed. Venous insufficiency noted over right common femoral artery and GSV Conclusion No DVTs observed. Venous insufficiency noted over right common femoral artery and GSV
== END | disposition home or self-care (01) ==
LOC: SHCH 13:41
PROVIDERS: ATTEND Student in an Organized Health Care Education/Training Program
DX: I70.201 Unspecified atherosclerosis of native arteries of extremities, right leg (principal); R00.1 Bradycardia, unspecified; I87.1 Compression of vein; G47.30 Sleep apnea, unspecified; I87.2 Venous insufficiency (chronic) (peripheral); I12.0 Hypertensive chronic kidney disease with stage 5 chronic kidney disease or end stage renal disease; E11.22 Type 2 diabetes mellitus with diabetic chronic kidney disease; N18.6 End stage renal disease; Z98.890 Other specified postprocedural states
CPT/HCPCS: 93925; 93970